=== PATIENT | male | born 1995 ===

== ENCOUNTER 2019-01-11 10:21 | Emergency (ER) | payer BC ==
[2019-01-11 10:44] VITALS: RESP 18; TEMP 96.1
--- NOTE | 2019-01-11 11:00 | ED PDOC ---
HPI: General Adult Time Seen by Provider: 01/11/19 10:45 Chief Complaint (Nursing): Abnormal Skin Integrity Chief Complaint (Provider): rash History Per: Patient History/Exam Limitations: no limitations Onset/Duration Of Symptoms: Days Have you had recent travel within the past 21 days to any of the following countries: [place], [place], [place] or [place]?: No Current Symptoms Are (Timing): Still Present Pain Scale Rating Of: 0 Additional History Per: Patient Additional Complaint(s): 23 y/o male with no significant med hx presents with a scattered rash to bilateral lower extremeties and upper ext for 2-3 weeks. Pt reports it started after going to the gym, pt denies exposing of skin nut reports lesions have slowly spread throughout the extremeties. Pt denies itchiness to lesions, pain, fever, nausea/vomiting, or being sick in the last few weeks. Pt has not applied tx for rash. Past Medical History Reviewed: Historical Data, Nursing Documentation, Vital Signs Vital Signs: Last Vital Signs Temp 96.1 F L 01/11/19 10:40 Pulse 64 01/11/19 10:40 Resp 18 01/11/19 10:40 BP 157/103 H 01/11/19 10:40 Pulse Ox 100 01/11/19 10:40 - Medical History PMH: No Chronic Diseases - Surgical History Surgical History: No Surg Hx - Family History Family History: States: Unknown Family Hx - Living Arrangements Living Arrangements: With Family - Social History Alcohol: None Drugs: Denies - Home Medications Home Medications: Ambulatory Orders Medication Instructions Recorded DiphenhydrAMINE [Benadryl] 50 mg PO Q6H PRN #30 cap 01/11/19 Triamcinolone 0.1% [Triamcinolone 0.1 % TP BID #1 tube 01/11/19 0.1% Cream] - Allergies Allergies/Adverse Reactions: Allergies Allergy/AdvReac Type Severity Reaction Status Date / Time No Known Allergies Allergy Verified 01/11/19 10:40 Review of Systems Constitutional: Negative for: Fever Eyes: Negative for: Pain ENT: Negative for: Ear Pain Respiratory: Negative for: Cough, Shortness of Breath Gastrointestinal: Negative for: Nausea, Vomiting Skin: Positive for: Rash (lower and upper extremeties, and back. pt reports lesions on the back have been itchy. no one else at home has rash) Physical Exam - Reviewed Nursing Documentation Reviewed: Yes Vital Signs Reviewed: Yes - Physical Exam Appears: Positive for: Well, Non-toxic, No Acute Distress Head Exam: Positive for: ATRAUMATIC, NORMAL INSPECTION, NORMOCEPHALIC Skin: Positive for: Normal Color, Warm, Rash (rash scattered, 0.5 cm, raised, slightly erythematous. ) Eye Exam: Positive for: EOMI, Normal appearance, PERRL ENT: Positive for: Normal ENT Inspection Neck: Positive for: Normal, Painless ROM Cardiovascular/Chest: Positive for: Regular Rate, Rhythm Respiratory: Positive for: CNT, Normal Breath Sounds Gastrointestinal/Abdominal: Positive for: Normal Exam, Soft Back: Positive for: Normal Inspection Extremity: Positive for: Normal ROM Neurological/Psych: Positive for: Awake, Alert, Normal Tone, Oriented - ECG O2 Sat by Pulse Oximetry: 100 - Progress ED Course And Treament: Pt d/c home, advised on clinical findings, Pt to follow-up tomorrow with pmd for referral to dermatology. Pt given rx for benadryl and triamcinolone cream. Advised on return to ED precautions. Disposition - Clinical Impression Clinical Impression: Rash in adult - Patient ED Disposition Is Patient to be Admitted: No Counseled Patient/Family Regarding: Diagnosis, Need For Followup, Rx Given - Disposition Referrals: Jack Harris MD [Staff Provider] - Thanh Silvestre DO [Doctor Osteopathy] - Disposition: Routine/Home Disposition Time: 11:00 Condition: GOOD Prescriptions: DiphenhydrAMINE [Benadryl] 50 mg PO Q6H PRN #30 cap PRN Reason: Itching / Pruritus Triamcinolone 0.1% [Triamcinolone 0.1% Cream] 0.1 % TP BID #1 tube Instructions: Skin Rash, Topical Corticosteroid Medicines Print Language: [place] - POA Present On Arrival: None
[2019-01-11 11:34] VITALS: BP 142/86; PULSE 58; O2SAT 99
== END 2019-01-11 11:32 | disposition home or self-care (01) ==
LOC: H.ER 10:21
DX: R21 Rash and other nonspecific skin eruption (principal)